=== PATIENT | female | born 1970 | race Caucasian/White ===

== ENCOUNTER 2020-03-03 07:38 | Outpatient (CLI) | payer OTHER, SELFPAY ==
--- NOTE | ~2020-03-03 | MM_ITS ---
EXAMINATION: MM screening [facility] BI w ranjit HISTORY: Screening mammogram TECHNIQUE: Craniocaudal and mediolateral oblique 3-D tomosynthesis images were obtained and synthetic 2-D images were generated. CAD analysis was submitted and interpreted. COMPARISON: 12/22/2018, 12/15/2018, 10/20/2017, 09/09/2016 BREAST PARENCHYMAL COMPOSITION: There are scattered areas of fibroglandular density. FINDINGS: There is no evidence of suspicious mass, calcification, or architectural distortion to sugg est malignancy in either breast. There has been no suspicious interval change. IMPRESSION: 1. No mammographic evidence of malignancy. 2. Recommend routine screening mammography in one year. BI-RADS Category 1: Negative Reviewed, dictated and finalized at location A. DEVELOPER
== END 2020-03-03 07:39 | disposition home or self-care (01) ==
PROVIDERS: PCP Obstetrics & Gynecology; Visit Provider Obstetrics & Gynecology
DX: Z12.31 Encounter for screening mammogram for malignant neoplasm of breast (principal)
CPT/HCPCS: 77063; 77067

== ENCOUNTER 2021-03-12 07:14 | Outpatient (CLI) | payer OTHER, SELFPAY ==
--- NOTE | ~2021-03-12 | MM_ITS ---
EXAMINATION: MM screening [facility] BI w ranjit HISTORY: Screening mammogram TECHNIQUE: Craniocaudal and mediolateral oblique 3-D tomosynthesis images were obtained and synthetic 2-D images were generated. CAD analysis was submitted and interpreted. COMPARISON: 03/03/2020, 12/22/2018, 12/15/2018, 10/20/2017 BREAST PARENCHYMAL COMPOSITION: There are scattered areas of fibroglandular density. FINDINGS: There is no evidence of suspicious mass, calcification, or architectural distortion to sugg est malignancy in either breast. There has been no suspicious interval change. IMPRESSION: 1. No mammographic evidence of malignancy. 2. Recommend routine screening mammography in one year. BI-RADS Category 1: Negative Reviewed, dictated and finalized at location A. FIC RATE COMPUTER
== END 2021-03-12 07:15 | disposition home or self-care (01) ==
PROVIDERS: PCP Obstetrics & Gynecology; Visit Provider Obstetrics & Gynecology
DX: Z12.31 Encounter for screening mammogram for malignant neoplasm of breast (principal)
CPT/HCPCS: 77063; 77067

== ENCOUNTER 2022-05-13 07:20 | Outpatient (CLI) | payer OTHER, SELFPAY ==
--- NOTE | ~2022-05-13 | MM_ITS ---
EXAMINATION: MM screening [facility] w ranjit HISTORY: Screening mammogram TECHNIQUE: Craniocaudal and mediolateral oblique 3-D tomosynthesis images were obtained and synthetic 2-D images were generated. CAD analysis was submitted and interpreted. COMPARISON: 03/12/2021, 03/03/2020 bilateral screening mammogram examinations BREAST PARENCHYMAL COMPOSITION: There are scattered areas of fibroglandular density. FINDINGS: There is no evidence of suspicious mass, calcification, or architectural distortion to sugg est malignancy in either breast. There has been no suspicious interval change. IMPRESSION: 1. No mammographic evidence of malignancy. 2. Recommend routine screening mammography in one year. BI-RADS Category 1: Negative Reviewed, dictated and finalized at location A. OUT CLERK
== END 2022-05-13 07:21 | disposition home or self-care (01) ==
PROVIDERS: PCP Obstetrics & Gynecology; Visit Provider Obstetrics & Gynecology
DX: Z12.31 Encounter for screening mammogram for malignant neoplasm of breast (principal)
CPT/HCPCS: 77063; 77067

== ENCOUNTER 2024-06-21 07:25 | Outpatient (CLI) | payer OTHER, SELFPAY ==
--- NOTE | ~2024-06-21 | MM_ITS ---
EXAMINATION: MM screening [facility] BI w ranjit HISTORY: Screening TECHNIQUE: Craniocaudal and mediolateral oblique 3-D tomosynthesis images were obtained and synthetic 2-D images were generated. CAD analysis was submitted and interpreted. COMPARISON: Comparison to multiple prior studies sequentially, with oldest reviewed study dated 04/2017. BREAST PARENCHYMAL COMPOSITION: Not dense: There are scattered areas of fibroglandular density. FINDINGS: There is no evidence of suspicious mass, calcification, or architectural distortion to sugg est malignancy in either breast. There has been no suspicious interval change. IMPRESSION: 1. No mammographic evidence of malignancy. 2. Recommend routine screening mammography in one year. BI-RADS Category 1: Negative Reviewed, dictated and finalized at location A.
--- OUTSIDE RECORDS SUMMARY | 2024-06-21 07:29 | XMS_ITS | Encounter Summary ---
Author Organization [facility] Address [facility] [place] [address] Care Team Providers Care Service Agent Name Role Phone Samantha Martinez Primary Care Provider Encounter Details Date Type Department Care Team (Late st Contact Info) Description 12/07/2021 Next New Networks Message Enc [facility] Medical Group Family & Internal Medicine [facility] [address] [place] [address] [place], [facility] Provider Lab work Social History Tobacco Use Types Packs/Day Years Used Date Smoking Tobacco: Never Smokeless Tobacco: Never Alcohol Use Standard Drinks/Week Comments Yes 0 (1 standard drink = 0.6 oz pur e alcohol) occasionally PHQ-2 Answer Date Recorded PHQ-2 Score - If the patient scores above 3, please move on to questions 3-9 0 07/29/2021 Comments No Sex and Gender Information Value Date Recorded Sex Assigned at Not on file Legal Sex Female 6:43 PM CDT Gender Identity Not on file Sexual Orientation Not on file documented as of this encounter Plan of Treatment Not on file documented as of this encounter Visit Diagnoses Not on filedocumented in this encounter Care Teams Service Agent Relationship Specialty [place] [address] [place] [address] PCP - General PHYSICIAN SANITARIAN 05/19/21 documented as of this encounter
--- OUTSIDE RECORDS SUMMARY | 2024-06-21 07:29 | XMS_ITS | Clinical Summary ---
Author Organization [facility] Address [address] [place] [address] Care Team Providers Care Claim Trainee Name Role Phone Samantha Martinez Primary Care Provider [phone] Allergies Active Allergy Reactions Criticality Noted Date Comments Amoxicillin Itching,Rash Low 06/28/2016 Medications VIORELE 0.15-0.02/0.01 MG (08/08) tablet Take 1 tablet by mouth daily. 3 07/27/2018 Active omega-3 fatty acid (FISH OIL) 500 MG capsule Take 2 capsules (1,000 mg total) by mouth daily. Active Probiotic Product (JOHNNY PROBIOTIC OR) Take by mouth daily. 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 Poison josie 09/05/2020 Perimenopausal symptoms 11/08/2017 Hyperkalemia 11/02/2017 Encounters Date Type Department Care Team Description 03/27/2024 Scan [facility] SRVCS Scanned, Doc Med Group from Last 3 Months Immunizations Name Administration Dates Next Due PFIZER COVID-19 (ORIGINAL FO RMULATION, PURPLE CAP) mRNA, LNP-S, PF, 30 MCG/0.3 ML DOSE 06/12/2020,05/22/2020 Family History Medical History Relation Comments None Father None Mother Ovarian Cancer Sister Relation Status Comments Father Mother Sister Social History Tobacco Use Types Packs/Day Years Used Date Smoking Tobacco: Never Smokeless Tobacco: Never Tobacco Cessation:Counseling Given: No Alcohol Use Standard Drinks/Week Comments Yes 3.3 (1 standard drink = 0.6 oz p ure alcohol) occasionally PHQ-2 Answer Date Recorded Patient Health Questionnaire-2 Score 0 12/21/2022 Comments No Sex and Gender Information Value Date Recorded Sex Assigned at Not on file Legal Sex Female 6:43 PM CDT Gender Identity Not on file Sexual Orientation Not on file Last Filed Vital Signs Vital Sign Reading Time Taken Comments Blood Pressure 126/86 12/21/2022 2:44 PM CDT Pulse 69 12/21/2022 2:44 PM CDT Temperature 36.2 C (97.2 F) 12/21/2022 2:44 PM CDT Respiratory Rate 14 12/21/2022 2:44 PM CDT Oxygen Saturation 99% 12/21/2022 2:44 PM CDT Inhaled Oxygen Concentration - - Weight 55.3 kg (122 lb) 12/21/2022 2:44 PM CDT Height 167.6 cm (5' 6 ) 12/21/2022 2:44 PM CDT Body Mass Index 19.69 12/21/2022 2:44 PM CDT Plan of Treatment Health Maintenance Due Date Last Done Comments Cervical Cancer Screening Pa p Smear (Age 30 to 64) Every 3 Years 1972 Hepatitis C 1990 DTaP, Tdap and Td Vaccines ( 1 - Tdap) 06/19/1991 Hepatitis B Vaccines (1 of 3 - 19+ 3-dose series) 06/19/1991 Cervical Cancer Screening Pa p with HPV Testing (Age 30 to 64) Every 5 Years 2002 Cervical Cancer Screening wi th HPV 2002 Mammogram Screening 2012 Zoster Vaccines (1 of 2) 2022 COVID-19 Vaccine (2023-2 5 season) 2023 06/12/2020, 05/22/2020 Influenza Adult (#1) 2023 Annual Physical 12/22/2023 12/21/2022 PHQ-2 (Physician [place]) 03/21/2024 12/21/2022 Colorectal Cancer Screening FIT-DNA (3 Years) 06/30/2025 06/30/2022, 06/30/2022 Meningococcal B Vaccine Aged Out No l onger eligible based on patient's age to complete this topic Meningococcal Vaccine Aged Out No yaneli mendoza eligible based on patient's age to complete this topic Pneumococcal Vaccine: Pediatrics (0 to 5 Years) and At-Risk Patients (6 to 64 Years) Aged Out No longer eligible b ased on patient's age to complete this topic RSV Immunizations Under 20 Months Aged Out No longer eligible b ased on patient's age to complete this topic Procedures Procedure Name Priority Date/Time Associated Diagnosis Comments COLOGUARD (EXACT SCIENCE) Routine 06/30/2022 7:05 AM CDT Colon cancer screening from Last 3 Months or Most Recently Relevant to Health Maintenance Results * COLOGUARD (EXACT SCIENCE) (06/30/2022 7:05 AM CDT) COLOGUARD RESULT Negative Negative [facility] (CLIA #:[id number]) Comment: NEGATIVE TEST RESULT. A negative Cologuard result indicates a low likelihood that a colorectal cancer (CRC) or advanced adenoma (adenomatous polyps with more advanced pre-malignant features) is present. The chance that a person with a negative Cologuard test has a colorectal cancer is less than 1 in 1500 (negative predictive value >99.9%) or has an advanced adenoma is less than 5.3% (negative predictive value 94.7%). These data are based on a prospective cross-sectional study of 10,000 individuals at average risk for colorectal cancer who were screened with both Cologuard and colonoscopy. (Kathia Guzmán al, N Engl J Med 2014;370(14):0946-1679) The normal value (reference range) for this assay is negative. COLOGUARD RE-SCREENING RECOMMENDATION: Periodic colorectal cancer screening is an important part of preventive healthcare for asymptomatic individuals at average risk for colorectal cancer. Following a negative Cologuard result, the [place] Cancer Society and U.S. Multi-Society Task Force screening guidelines recommend a Cologuard re-screening interval of 3 years. References: [place] [employer] Guideline for Colorectal Cancer Screening: https://www.cancer.org/cancer/mrhuo-diuhmn-ujnykv/csbgwhfge-aepwuqxkc-uerhzxi/ac s-rec ommendations.html.; Amandeep DK, Valerio CR, Sho REED, Colorectal Cancer Screening: Recommendations for Physicians and Patients from the U.S. Multi-Society Task Force on Colorectal Cancer Screening , Am J Gastroenterology 2017; 112:8409-8354. TEST DESCRIPTION: Composite algorithmic analysis of stool DNA-biomarkers with hemoglobin immunoassay. Quantitative values of individual biomarkers are not reportable and are not associated with individual biomarker result reference ranges. Cologuard is intended for colorectal cancer screening of adults of either sex, 45 years or older, who are at average-risk for colorectal cancer (CRC). Cologuard has been approved for use by the U.S. FDA. The performance of Cologuard was established in a cross sectional study of average-risk adults aged 50-84. Cologuard performance in patients ages 45 to 49 years was estimated by sub-group analysis of near-age groups. Colonoscopies performed for a positive result may find as the most clinically significant lesion: colorectal cancer [4.0%], advanced adenoma (including sessile serrated polyps greater than or equal to 1cm diameter) [20%] or non- advanced adenoma [31%]; or no colorectal neoplasia [45%]. These estimates are derived from a prospective cross-sectional screening study of 10,000 individuals at average risk for colorectal cancer who were screened with both Cologuard and colonoscopy. (Kathia Merrill. et al, N Engl J Med 2014;370(14):4207-0291.) Cologuard may produce a false negative or false positive result (no colorectal cancer or precancerous polyp present at colonoscopy follow up). A negative Cologuard test result does not guarantee the absence of CRC or advanced adenoma (pre-cancer). The current Cologuard screening interval is every 3 years. ([employer] [employer] Society and U.S. Multi-Society Task Force). Cologuard performance data in a 10,000 patient pivotal study using colonoscopy as the reference method can be accessed at the following location: www.[facility].com/results. Additional description of the Cologuard test process, warnings and precautions can be found at www.cologuard.com. STOOL STOOL SPECIMEN / Unknown 06/30/2022 7:05 AM CDT 07/01/2022 4:05 PM CDT Samantha ARGUELLO BODY FLUIDS AND STOOLS ORDER DANIELA Final Result [facility]) [address] [place] [address], [facility] (CLIA #:[id number]) [address] [place] [address] from Last 3 Months or Most Recently Relevant to Health Maintenance Insurance [facility] Care Teams Claim Trainee Relationship Specialty [place] [address] [place] [address] PCP - General PHYSICIAN TICKET SORTER 05/19/21
--- OUTSIDE RECORDS SUMMARY | 2024-06-21 07:29 | XMS_ITS | Encounter Summary ---
Author Organization [facility] Address [facility] [place] [address] Care Team Providers Care Artistic Associate Name Role Phone Samantha Martinez Primary Care Provider [phone] Encounter Details Date Type Department Care Team (Late st Contact Info) Description 02/19/2022 the grafter Message Enc [facility] Medical Group Family & Internal Medicine [facility] [address] [place] [address] [place] [address] [place] [address] Referral Social History Tobacco Use Types Packs/Day Years [...] on filedocumented in this encounter Care Teams Artistic Associate Relationship Specialty [place] [address] [place] [address] PCP - General PHYSICIAN MORTGAGE LOAN INTERVIEWER 05/19/21 documented as of this encounter
--- OUTSIDE RECORDS SUMMARY | 2024-06-21 07:29 | XMS_ITS | Encounter Summary ---
Author Organization [facility] Address [facility] [place] [address] Care Team Providers Care Steamer Tender Name Role Phone Samantha Martinez Primary Care Provider [phone] Encounter Details Date Type Department Care Team (Latest Contact Info) Description 08/06/2021 autoGraph Message Enc [facility] Medical Group Family & Internal Medicine [facility] [address] [place] [address] [place] [address] [place] [address] Comprehensive Hereditary cancer screen Social History Tobacco Use Types Packs/Day Years [...] on file Sexual Orientation Not on file COVID-19 Exposure Response Date Recorded In the last 10 days, have yo u been in contact with someone who was confirmed or suspected to have Coronavirus/COVID-19? No / Unsure 07/29/2021 7:29 AM CDT documented as of this encounter Progress Notes * Jo Ann Diamond RN - 08/12/2021 1:24 PM CDT Left message on machine that lab work was faxed to Ezequiel Galvez, ranjan with any questions * Jo Ann Diamond RN - 08/12/2021 1:21 PM CDT Faxed order to Leonor Nieves ([phone] * SAUNDRA Macias - 08/12/2021 11:58 AM CDT Orders have previously been placed with diagnosis codes to [facility]. Under miscellaneous test. * Jo Ann Dimaond RN - 08/12/2021 11:00 AM CDT What labs & what dx codes? * Safia Rosa RN - 08/12/2021 10:40 AM CDT Samantha patient * Cayla Lane LPN - 08/12/2021 9:01 AM CDT Pt called agreed to have order sent to [facility] She is not sure where they are located Send to [facility] or closest to pt Let her know where documented in this encounter Plan of Treatment Not on file documented as of this encounter Visit Diagnoses Not on filedocumented in this encounter Care Teams Steamer Tender Relationship Specialty [place] [address] [place] [address] PCP - General PHYSICIAN TECHNICAL PROJECT MANAGER 05/19/21 documented as of this encounter
--- OUTSIDE RECORDS SUMMARY | 2024-06-21 07:29 | XMS_ITS | Encounter Summary ---
Author Organization [facility] Address [facility] [place] [address] Care Team Providers Care Group Activities Aide Name Role Phone Samantha Martinez Primary Care Provider [phone] Encounter Details Date Type Department Care Team (Late st Contact Info) Description 11/08/2021 SpeakWorks Message Enc [facility] Medical Group Family & Internal Medicine [facility] [address] [place] [address] [place] [address] [place] [address] Blood test Social History Tobacco Use Types Packs/Day Years [...] on filedocumented in this encounter Care Teams Group Activities Aide Relationship Specialty [place] [address] [place] [address] PCP - General PHYSICIAN TECHNICAL TRAINING SPECIALIST 05/19/21 documented as of this encounter
== END 2024-06-21 07:26 | disposition home or self-care (01) ==
PROVIDERS: PCP Obstetrics & Gynecology; Visit Provider Obstetrics & Gynecology
DX: Z12.31 Encounter for screening mammogram for malignant neoplasm of breast (principal)
CPT/HCPCS: 77063; 77067